=== PATIENT | female | born 1950 | race Caucasian/White ===

== ENCOUNTER → 2025-01-19 | Outpatient (CLI) | payer MEDICARE ==
[~2025-01-19] VITALS: Ht 167.6 cm; Wt 60.8 kg
[~2025-01-19] MED LIST: ACET-2247 PO; ALBU18HF7 IH; APIX5TAB PO; ATOR40TA71 PO; DRON400T7 PO; FERR-72 PO; FURO20TA4 PO; LOSA25TA41 PO; MELA10TA10 SL; METO-408 PO; PANT40TA54 PO
[2025-01-19 10:08] VITALS: BP 122/71; PULSE 63; RESP 14; TEMP 97.2
[2025-01-19 10:13] LABS: BASOPHILS # (AUTO) 0.04 K/uL (0.00-0.20); BASOPHILS % (AUTO) 0.6 % (0.0-5.0); EOSINOPHILS # (AUTO) 0.05 K/uL (0.00-0.70); EOSINOPHILS % (AUTO) 0.7 % (0.0-8.0); HEMATOCRIT 35.8 % (36-48); IMMATURE GRANULOCYTE ABSOLUTE 0.02 K/uL (0-1); LYMPHOCYTES # (AUTO) 1.7 K/uL (1.0-4.8); LYMPHOCYTES % (AUTO) 24.4 % (21.0-51.0); MEAN CORPUSCULAR HGB CONC 32.7 g/dL (32.0-36.0); MONOCYTES # (AUTO) 0.6 K/uL (0.1-1.0); MONOCYTES % (AUTO) 8.6 % (3.0-13.0); NEUTROPHILS # (AUTO) 4.6 K/uL (1.8-7.7); NEUTROPHILS % (AUTO) 65.4 % (40.0-77.0); PLATELET COUNT (AUTO) 198 K/uL (130-400); RED BLOOD CELL COUNT(AUTO) 3.77 MIL/uL (4.00-5.50); RED CELL DISTRIBUTION WIDTH 14.8 % (11.0-15.5)
[2025-01-19 10:20] LABS: CREATININE 0.9 mg/dL (0.5-1.0); POTASSIUM 4.7 mmol/L (3.5-5.1)
[2025-01-19 10:22] LABS: INR 1.08 (0.85-1.15); PROTHROMBIN TIME 11.4 SEC (9.6-11.6)
[2025-01-19 10:24] LABS: PARTIAL THROMBOPLASTIN TIME 27.3 SEC (26.3-35.5)
--- NOTE | 2025-01-19 10:28 | EKG ---
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
== END | disposition home or self-care (01) ==
LOC: DAH 09:20 → EDSTATUS 01-21 08:00
PROVIDERS: ATTEND Internal Medicine Cardiovascular Disease
DX: I49.1 Atrial premature depolarization (principal); I44.7 Left bundle-branch block, unspecified; I21.9 Acute myocardial infarction, unspecified; I48.0 Paroxysmal atrial fibrillation
CPT/HCPCS: 36415; 80048; 85025; 85610; 85730; 93005

== ENCOUNTER 2025-05-20 05:39 | Day surgery (SDC) | payer MEDICARE ==
[2025-05-18 09:28] LABS: IMMATURE GRANULOCYTE ABSOLUTE 0.02 K/uL (0-1); NUCLEATED RED BLOOD CELLS 0.0 % (0.0-0.19); PLATELET COUNT (AUTO) 227 K/uL (130-400); RED BLOOD CELL COUNT(AUTO) 3.80 MIL/uL (4.00-5.50); RED CELL DISTRIBUTION WIDTH 12.5 % (11.0-15.5); WHITE BLOOD COUNT (AUTO) 6.9 K/uL (4.8-10.8)
[2025-05-18 09:36] VITALS: BP 138/69; PULSE 64; RESP 13; TEMP 97.2
[2025-05-18 09:37] LABS: INR 1.16 (0.85-1.15)
[2025-05-18 09:38] LABS: CREATININE 0.9 mg/dL (0.5-1.0); GLOMERULAR FILTR. RATE CALC 66.0 mL/min (>90); GLUCOSE,RANDOM 114.0 mg/dL (70-105); SODIUM SERUM 137.0 mmol/L (136-145); UREA NITROGEN, BLOOD 13.0 mg/dL (7-18)
--- NOTE | 2025-05-18 09:38 | EKG ---
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
[~2025-05-20] VITALS: Ht 167.6 cm; Wt 59.8 kg
[2025-05-20] VITALS (18 sets, daily range): BP systolic 99–137; BP diastolic 52–71; PULSE 45–93; RESP 12–17; TEMP 96.9–98.1
[~2025-05-20 05:39] MED LIST changes: -ACET-2247 PO; -ALBU18HF7 IH; -FERR-72 PO; -LOSA25TA41 PO; -MELA10TA10 SL; -METO-408 PO
[2025-05-20] MEDS ORDERED: GLYCOPYRROLATE 0.2 MG/ML 5 ML VIAL ONE (06:49)
[2025-05-20] MEDS ORDERED: LIDOCAINE PF 100MG/5ML (2%) SYRINGE 5ML ONE (06:49)
[2025-05-20] MEDS ORDERED: NEOSTIGMINE METHYLSULFATE 1MG/ML IV ONE (06:50)
[2025-05-20] MEDS: 0.9%NACL 1000ML 1,000 ML IV ONE (06:54)
[2025-05-20] MEDS ORDERED: MIDAZOLAM HCL 1 MG/ML 2ML VIAL ONE (07:09)
[2025-05-20] MEDS ORDERED: LIDOCAINE HCL 400MG/20ML VIAL ONE (07:32)
[2025-05-20] MEDS ORDERED: HEParin-NS 1,000 UNIT/500 ML 1,000 ML IV ONE (07:53)
[2025-05-20] MEDS ORDERED: SODIUM BICARB 50MEQ 50ML VIAL 50 ML ONE (07:53)
[2025-05-20] MEDS ORDERED: SUGAMMADEX SODIUM 200 MG/2 ML VIAL IV ONE (12:02)
[2025-05-20] MEDS ORDERED: PANT40TA55 PO (14:48)
[2025-05-20] MEDS ORDERED: SUCR1TAB2 PO (14:48)
[2025-05-20] MEDS: SUCRALFATE 1 GM/10 ML PO ONE (16:49)
== END 2025-05-20 18:05 | disposition home or self-care (01) ==
LOC: DAH 05:39
PROVIDERS: ATTEND Internal Medicine Cardiovascular Disease
DX: I48.0 Paroxysmal atrial fibrillation (principal); I11.0 Hypertensive heart disease with heart failure; I50.20 Unspecified systolic (congestive) heart failure; I48.4 Atypical atrial flutter; I44.7 Left bundle-branch block, unspecified; I44.0 Atrioventricular block, first degree; I49.1 Atrial premature depolarization; J44.9 Chronic obstructive pulmonary disease, unspecified; E78.5 Hyperlipidemia, unspecified; Z86.718 Personal history of other venous thrombosis and embolism; Z79.899 Other long term (current) drug therapy
CPT/HCPCS: 80048; 85025; 85610; 85730; 36415; 93005; 93656; 93655; 93657 ×2; 85347 ×9; C1894 ×3; C1732 ×3; A4649 ×2; C1760 ×3; C1766; A4663; J3010; J3490 ×5; J1100; J7030; J2003; J2720; J1644 ×4; J2250; J2704; J2405; J2710; J2371; A4215; A4222; A4221; A4216; A4223 ×3